=== PATIENT | male | born 1950 | race Caucasian/White ===

== ENCOUNTER → 2016-12-12 | Outpatient (CLI) | payer MEDICARE ==
[2015-09-22 23:45] VITALS: BP 112/62
[~2016-12-12] MED LIST: ASPI-482 PO; ATOR20TA PO; LISI-338 PO; OMEG100021 PO; VIT1TABL2 PO
[2016-12-12] MEDS: REGADENOSON 0.4 MG/5 ML DISP.SYRIN. IV ONE (09:00)
--- NOTE | 2016-12-12 13:21 | RAD ---
APPROVED REPORT Test Type: Pharmacological Stress Nurse/Tech: Amarilys Allred R.N. Test Indications: exertional dyspnea Cardiac History: Family history Medications: See Electronic Medical Record Medical History: See Electronic Medical Record Resting ECG: NSR Resting Heart Rate: 60 bpm Resting Blood Pressure: 132/70mmHg Pretest Chest Pain: No chest pain Nurse/Tech Notes S1S2, lungs sound clear Consent: The procedure was explained to the patient in lay terms. Informed consent was witnessed. Rafael eout was entered into [employer]. History and Stress Test performed by Amarilys Allred R.N. Pharm. Details Pharmacologic stress testing was performed using 0.4mg per 5ml of regadenoson given intravenously ove r 7-10 seconds. Stress Symptoms DyspneaNausea POST EXERCISE Reason for Termination: Infusion complete Max HR: 119 bpm Max Blood Pressure: 126/61mmHg Blood Pressure response to exercise: Normal blood pressure response during stress. Chest Pain: No. Arrhythmia: No. ST Change: No. INTERPRETATION Stress EKG Conclusion: No evidence of stress induced EKG changes. Imaging Protocol IMAGE PROTOCOL: Rest Tc-99m/stress Tc-99m 1 day Rest: Stress: Viability: Radiopharm.Tc99m [id number] Sestamibi Dose11.8mCi 33mCi Img Date 12/12/2016 12/12/2016 Inj-Img Tcqu27xkn. 45min. Rest Admin Site:IV - Right AntecubitalAdministrator:HODA Garrett Stress Admin Site: IV - Right AntecubitalAdministrator: Hermilo Arora, RT (R)(N) STRESS DATA End Diast. Vol.59.0mlAv. Heart Rate69.0bpm End Syst. Vol.9.0mlCO Index BSA0.0L/min Myocardial Vokl737.0gEject. Ehwzzosn29.0% Stress Rates Pk. Fill Rate3.59EDV/secLVtime Pk. Fill 258.76msec Pk. Empty Rate5.46ESV/secLVtime Pk. Nndik103.62msec 06/10 Pk. Fill1.06EDV/sec Stress Scores Regional WT3.00Summed WT17.00 Regional WM0.00Summed WM2.00 The rest and stress images show normal perfusion, normal contraction and thickening. LV Perf. Quant 17 Seg. SSS0.00 17 Seg. SRS1.00 17 Seg. SDS0.00 Stress Defect Extent (% LAD)0.00Rest Defect Extent (% LAD)0.00Rev. Defect Extent (% LAD)0.00 Stress Defect Extent (% LCX) 0.00Rest Defect Extent (% LCX)0.00Rev. Defect Extent (% LCX)0.00 Stress Defect Extent (% RCA)0.00Rest Defect Extent (% RCA)0.00Rev. Defect Extent (% RCA)0.00 Stress Defect Extent (% FLORENTINO)0.00Rest Defect Extent (% FLORENTINO)0.00Rev. Defect Extent (% FLORENTINO)0.00 Other Information Quality:Good Risk Assessment: Low Risk Conclusion 1. No evidence of stress induced EKG changes. 2. Normal perfusion at stress/rest. 3. Low risk study. EF > 70%
--- NOTE | 2016-12-12 18:08 | CARD ---
APPROVED REPORT EXAM: Two-dimensional and M-mode echocardiogram with Doppler and color Doppler. Other Information Quality : GoodHR: 60bpm Rhythm : NSR INDICATION Dyspnea on exertion RISK FACTORS Hypertension Obesity Hyperlipidemia 2D DIMENSIONS RVDd2.9 (2.9-3.5cm)Left Atrium(2D)3.5 (1.6-4.0cm) IVSd1.0 (0.7-1.1cm)Aortic Root(2D)3.1 (2.0-3.7cm) LVDd3.9 (3.9-5.9cm)LVOT Diameter2.4 (1.8-2.4cm) PWd1.0 (0.7-1.1cm)LVDs2.7 (2.5-4.0cm) FS (%) 29.8 %SV35.3 ml LVEF(%)57.7 (>50%) Aortic Valve AoV Peak Garcia.126.0cm/sAoV VTI25.6cm AO Peak GR.6.4mmHgLVOT Peak Garcia.122.7cm/s AO Mean GR.3mmHgAVA (VMAX)4.56cm2 Mitral Valve MV E Pvzesoky53.4cm/sMV E Peak Gr.3mmHg MV DECEL [id number] A Lfnqtveg51.4cm/s MV E Mean Gr.1mmHgE/A Ratio0.9 MV A Qdrefpsi71en Pulmonary Valve PV Peak Owmfwxzc174.9cm/s Pulmonary Vein S1 Hrzhuhhr50.3cm/sD2 Vrixkbfd86.4cm/s PVa htiqxjys51rdyz LEFT VENTRICLE The left ventricle is normal size. There is normal left ventricular wall thickness. The left ventricu lar systolic function is normal. The Ejection Fraction is 55-60%. There is normal LV segmental wall m otion. Transmitral Doppler flow pattern is Grade I-abnormal relaxation pattern. RIGHT VENTRICLE The right ventricle is normal size. There is normal right ventricular wall thickness. The right ventr icular systolic function is normal. ATRIA The left atrium size is normal. The right atrium size is normal. The interatrial septum is intact wit h no evidence for an atrial septal defect or patent foramen ovale as noted on 2-D or Doppler imaging. AORTIC VALVE The aortic valve is mildly thickened. The aortic valve is trileaflet. Doppler and Color Flow revealed no significant aortic regurgitation. There is no significant aortic valvular stenosis. MITRAL VALVE The mitral valve leaflets are thickened. There is no evidence of mitral valve prolapse. There is no m itral valve stenosis. Doppler and Color Flow revealed no mitral valve regurgitation noted. TRICUSPID VALVE Doppler and Color Flow revealed trace tricuspid valve regurgitation. PULMONIC VALVE The pulmonic valve is not well visualized but appears to open well. Doppler and Color Flow revealed t race pulmonic valvular regurgitation. There is no pulmonic valvular stenosis by spectral Doppler. GREAT VESSELS The aortic root is normal in size. The ascending aorta is normal in size. The pulmonary artery is nor mal. The IVC is normal in size and collapses >50% with inspiration. PERICARDIAL EFFUSION There is no evidence of significant pericardial effusion. Critical Notification Critical Value: No <Conclusion> The left ventricular systolic function is normal. The Ejection Fraction is 55-60%. There is normal LV segmental wall motion. Transmitral Doppler flow pattern is Grade I-abnormal relaxation pattern. Doppler and Color Flow revealed trace tricuspid valve regurgitation. There is no evidence of significant pericardial effusion.
== END | disposition home or self-care (01) ==
LOC: NM 07:47
PROVIDERS: ATTEND Internal Medicine Cardiovascular Disease
DX: I07.1 Rheumatic tricuspid insufficiency (principal)
CPT/HCPCS: 78452; 93017; 93306; 96374; 96375; 96376; A9500; J2785

== ENCOUNTER → 2017-02-27 | Outpatient (CLI) | payer MEDICARE ==
[2015-09-22 23:45] VITALS: BP 112/62
[~2017-02-27] MED LIST changes: +IOHEXOL 240 MG/ML 50ML VIAL. PO ONE
--- NOTE | 2017-02-27 12:30 | KCIC ---
Examination: CT of the abdomen pelvis with oral contrast HISTORY: History of left lower quadrant abdominal pain, bloating for one month COMPARISON: None available TECHNIQUE: Axial CT images of the abdomen pelvis were performed with oral contrast. Coronal and sagittal reformats are performed. Exposure: One or more of the following individualized dose reduction techniques were utilized for this examination: 1. Automated exposure control 2. Adjustment of the mA and/or kV according to patient size 3. Use of iterative reconstruction technique. Findings: The visualized bibasilar lungs grossly appears unremarkable. No evidence of free air identified in the abdomen. The evaluation of the solid organs is limited due to lack of IV contrast. There is diffuse decreased attenuation throughout the liver likely hepatic steatosis. The visualized spleen, adrenals grossly appears unremarkable. The gallbladder is mildly distended. The stomach is mildly distended with contrast. The small bowel is nondilated. The appendix is normal. Feces and gas noted in the colon. Urinary bladder is mildly distended. Mild prominent appearing prostate gland. There is a 4 mm calculus identified in the right kidney. No evidence of hydronephrosis. Minimal bilateral perinephric fat stranding identified. There is a exophytic 1.3 cm cystic density identified in the inferior aspect of the left kidney measuring 14 Hounsfield units could be a cyst or cystic lesion. The visualized pancreas grossly appears unremarkable. Moderate aortic atherosclerosis. Moderate degenerative changes lumbar spine. IMPRESSION: 1. 4 mm intrarenal collecting system calculus identified in the right kidney. 2. 1.3 cm cystic structure identified in the inferior pole of the left kidney could be a cyst or cystic lesion. Follow-up ultrasound is limited for further evaluation. 3. Mild nonspecific bilateral perinephric fat stranding could be chronic. Urinary tract infection is not completely excluded. Consider follow-up urinalysis. 4 . Diffuse hepatic steatosis. 5. Moderate amount of stool identified throughout the colon. Correlate for constipation. Electronically signed by: Prem Murrieta MD (02/27/2017 12:27 PM) [facility]
== END | disposition home or self-care (01) ==
LOC: KCIC CT 10:36
PROVIDERS: ATTEND Family Medicine
DX: K76.0 Fatty (change of) liver, not elsewhere classified (principal); N39.0 Urinary tract infection, site not specified; N20.0 Calculus of kidney; I70.0 Atherosclerosis of aorta; R14.0 Abdominal distension (gaseous)
CPT/HCPCS: 74176; Q9966

== ENCOUNTER → 2017-04-24 | Outpatient (CLI) | payer MEDICARE ==
[2015-09-22 23:45] VITALS: BP 112/62
[~2017-04-24] MED LIST changes: -IOHEXOL 240 MG/ML 50ML VIAL. PO ONE
--- NOTE | 2017-04-24 11:43 | RAD ---
Renal ultrasound 04/24/2017 Indication: Chronic renal disease Comparison study: CT of the abdomen and pelvis without contrast February 27, 2017. Discussion: Ultrasound evaluation of the kidneys was performed. Static images were submitted to PACS. Right kidney is somewhat poorly visualized likely secondary to body habitus. Right kidney measures approximately 10.6 cm in length. No overt hydronephrosis or evidence of nephrolithiasis is identified. The bladder is partially decompressed but otherwise grossly unremarkable. Left kidney is also somewhat poorly visualized measuring approximately 10.3 cm in length. No hydronephrosis or nephrolithiasis is seen on the left. Impression: Somewhat limited study without sonographic evidence of renal abnormality.
== END | disposition home or self-care (01) ==
LOC: US 08:13
PROVIDERS: ATTEND Internal Medicine Nephrology
DX: I12.9 Hypertensive chronic kidney disease with stage 1 through stage 4 chronic kidney disease, or unspecified chronic kidney disease (principal); N18.3 Chronic kidney disease, stage 3 (moderate); N28.1 Cyst of kidney, acquired
CPT/HCPCS: 76770

== ENCOUNTER → 2018-07-26 | Outpatient (CLI) | payer BC, MEDICARE ==
[2015-09-22 23:45] VITALS: BP 112/62
[~2018-07-26] MED LIST changes: +CONTRAST GIVEN. MC PRN; +IOHEXOL 300 MG/ML 100ML VIAL. IV ONE
--- NOTE | 2018-07-26 13:06 | RAD ---
CT of the abdomen with and without IV contrast compared to CT of the abdomen and pelvis dated February 27, 2017 for abnormal LFTs. TECHNIQUE: Contiguous helical 3 mm axial images are obtained from the apex of diaphragm to the iliac crests both before and after administration of IV contrast. Sagittal and coronal reformations are evaluated. FINDINGS: Calcified granulomata in the right hilum are noted. Lung bases are clear. There is also small calcified granuloma in the left lobe of the liver with several more than the spleen. These are of doubtful clinical consequence. Gallbladder is partially fluid distended and grossly unremarkable. Splenomegaly is redemonstrated. Pancreas and bilateral adrenal glands are grossly unremarkable. There are several descending esophageal and gastric varices which are markedly more prominent than on the prior study. Pulmonary venous.. Splenic vein is patent. Right kidney is notable for a nonobstructing upper pole calyceal calculus which is stable and unchanged. There are 2 right renal arteries. Left kidney is notable for a 1.8 x 1.7 cm circumscribed abnormality arising from the inferior medial pole, with Hounsfield units of 50 on early postcontrast images, which fall to 40 on late postcontrast images. Unfortunately this region was not included on the precontrast images, but was noted to have Hounsfield units of only 12 on the prior study. Consequently, enhancing enlarging malignancy is suspected. This finding could be further validated with renal ultrasound or MRI of the abdomen. Incidentally noted in the left lower quadrant of the abdomen on CT series #7 axial image #86 is a 1.3 cm aneurysm which is enlarged from prior measurement of 0.8 mm. It is difficult to tell whether this constitutes an isolated arterial aneurysm, or an aneurysmal segment of a high flow arteriovenous fistula or perhaps an enlarging nidus of vascular malformation. If there is a venous fistulous component, this could contribute to increased portal pressures and the aforementioned a sending an esophageal and gastric varices. This finding could be better defined and perhaps treated with with direct angiography. No significant osteoblastic or osteolytic bone lesions are seen. No gross abnormalities of the visualized enteric structures. IMPRESSION: 1. Worsening ascending with preserved portal vein and splenic vein patency. 2. Persistent splenomegaly. 3. 1.8 cm left lower pole exophytic high density renal lesion suspicious for enlarging renal cell carcinoma. This lesion could be further characterized with renal ultrasound and/or MRI, and is amenable to percutaneous biopsy and cryoablation if the patient is not deemed to be a suitable candidate for partial nephrectomy. 4. 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 Direct mesenteric angiography is recommended for better diagnostic assessment and treatment planning. Findings were discussed with Dr. Luther immediately upon interpretation of the examination. Electronically signed by: Hi Miranda MD (07/26/2018 1:03 PM) [facility]
== END | disposition home or self-care (01) ==
LOC: CT 15:43
PROVIDERS: ATTEND Family Medicine
DX: R16.1 Splenomegaly, not elsewhere classified (principal); K82.8 Other specified diseases of gallbladder; I86.4 Gastric varices; N20.0 Calculus of kidney; I71.4 Abdominal aortic aneurysm, without rupture
CPT/HCPCS: 74170; Q9967

== ENCOUNTER → 2018-08-18 | Outpatient (CLI) | payer BC ==
[2015-09-22 23:45] VITALS: BP 112/62
[~2018-08-18] MED LIST changes: -CONTRAST GIVEN. MC PRN; -IOHEXOL 300 MG/ML 100ML VIAL. IV ONE
--- NOTE | 2018-08-18 15:23 | RAD ---
Renal ultrasound compared to similar study dated April 24, [address] scan. Technique an findings: Real-time grayscale and color and spectral Doppler evaluation of the kidneys is performed. The right kidney measures 11.6 x 5.5 x 5.9 cm and the left measures 12.6 x 5.0 x 5.6 cm. There is no hydronephrosis or perinephric fluid around either kidney. At the inferior pole the left kidney, there is a circumscribed hypoechoic exophytic lesion measuring 2.1 x 1.9 x 1.8 cm, corresponding to the abnormality seen on the prior CT scan. No demonstrable internal vascularity is evident, and this lesion does appear to exhibit increased through transmission suggesting a cystic nature. This is most consistent with a Bosniak type IIF lesion, for which follow-up evaluation in 6 months with three-phase CT scan or MRI with gadolinium is recommended. Ultrasound for follow-up is not likely to yield sufficient clarity. The urinary bladder is partially fluid distended and grossly unremarkable. Ureteral jets are not observed. IMPRESSION: 1. 2.1 cm complex hypoechoic exophytic lesion at the inferior pole of the left kidney corresponding to the abdomen malady seen on CT scan. This most likely represents a complex renal cyst, and is most consistent with a Bosniak type II F lesion. Follow-up evaluation in 6 months with three-phase CT scan or gadolinium enhanced MRI is recommended. Follow-up with ultrasound is not likely to add sufficient clarity. Electronically signed by: Hi Miranda MD (08/18/2018 3:20 PM) [facility]
== END | disposition home or self-care (01) ==
LOC: US 12:52
PROVIDERS: ATTEND Urology
DX: N28.89 Other specified disorders of kidney and ureter (principal)
CPT/HCPCS: 76770

== ENCOUNTER → 2019-02-23 | Outpatient (CLI) | payer BC ==
[2015-09-22 23:45] VITALS: BP 112/62
--- NOTE | 2019-02-24 16:42 | RAD ---
RENAL COMPLETE BILATERAL History: Follow-up renal lesion. Comparison: August 18, 2018. Procedure: Transabdominal ultrasound images are obtained of the kidneys and bladder. Findings: Right kidney: measures 12.1 x 4.0 x 6.5 cm. Normal cortical echotexture. Corticomedullary differentiation is preserved. No hydronephrosis. No renal cyst right superior renal nonobstructing calculus. Left kidney: measures 11.4 x 5.8 x 5.8 cm. Normal cortical echotexture. Corticomedullary differentiation is preserved. No hydronephrosis. Left inferior exophytic renal complex cystic lesion measures 2.0 x 1.9 x 1.6 cm, similar compared to prior. Urinary bladder: Decompressed urinary bladder. Enlarged prostate measures 4.0 x 4.8 x 4.2 cm. IMPRESSION: 1. Complicated left renal cyst, unchanged compared to prior ultrasound. Recommend continued follow-up. 2. Nonobstructing right superior renal calculus.. Electronically signed by: Marques Bhatt DO (02/24/2019 4:39 PM) [facility]
== END | disposition home or self-care (01) ==
LOC: US 15:22
PROVIDERS: ATTEND Urology
DX: N28.1 Cyst of kidney, acquired (principal); N20.0 Calculus of kidney; N40.0 Benign prostatic hyperplasia without lower urinary tract symptoms
CPT/HCPCS: 76770

== ENCOUNTER → 2019-05-16 | Outpatient (CLI) | payer BC ==
[2015-09-22 23:45] VITALS: BP 112/62
--- NOTE | 2019-05-16 14:57 | KCIC ---
3 views of right shoulder without comparison for right shoulder pain when reaching above the head, prior rotator cuff repair. FINDINGS: There is no fracture, dislocation, or acute osseous abnormality. There may be some narrowing of the glenohumeral joint. No calcifications are seen. IMPRESSION: 1. No acute osseous abnormality. There may be mild glenohumeral osteoarthritis. Electronically signed by: Hi Miranda MD (05/16/2019 2:54 PM) [facility]
== END | disposition home or self-care (01) ==
LOC: KCIC 08:12
PROVIDERS: ATTEND Family Medicine
DX: M25.511 Pain in right shoulder (principal)
CPT/HCPCS: 73030

== ENCOUNTER 2019-07-03 14:10 | Emergency (ER) | payer BC ==
[~2019-07-03] VITALS: Ht 180.3 cm; Wt 121.0 kg
[2019-07-03] MEDS ORDERED: HYDROcodone/APAP 5/325MG 1 TAB TABLET PO ONE (15:15)
--- NOTE | 2019-07-03 15:18 | PHYS DOC ---
Past Medical History Past Medical History: High Cholesterol, Hypertension Additional Past Medical Histor: CHRONIC BACK PAIN Past Surgical History: Tonsillectomy, Other Additional Past Surgical Histo: back, shoulder, finger , hernia Alcohol Use: None Drug Use: None Adult General Chief Complaint Chief Complaint: BACK PAIN OR INJURY HPI HPI Patient is a 69 year old male who presents with states 2 days ago he was wa lking when he heard a pop in his right low back and right hip. States is sharp and shooting goes from his right lower back down into the right hip and down the back of the right leg. States he's been using a heating pad and cold pack with no relief. He rates his pain a 9 out of 10. States he is allergic to codeine but he is able to take hydrocodone. Has history of bone spurs in his back and back surgery in 2005. Review of Systems Review of Systems Musculoskeletal: rigth low back paininto right hip and down back of leg joint pain [] All other systems were reviewed and found to be within normal limits, except as documented in this note. Current Medications Current Medications Current Medications Medications (Trade) Dose Ordered Sig/Guera Start Time Stop Time Status Last Admin Dose Admin Acetaminophen/ Hydrocodone Bitart (Lortab 5/325) 1 tab 1X ONCE 07/03/19 15:15 07/03/19 15:16 DC 07/03/19 15:22 1 TAB Orphenadrine Citrate (Norflex) 60 mg STK-MED ONCE 07/03/19 15:57 07/03/19 15:57 DC Allergies Allergies Allergies Coded Allergies Type Severity Reaction Last Updated Verified codeine Allergy Severe HIVES, MAKES ME AGGRESSIVE 07/03/19 Yes Physical Exam Physical Exam Constitutional: Well developed, well nourished, no acute distress, non-toxic appearance. [] HENT: Normocephalic, atraumatic, bilateral external ears normal, oropharynx neelima st, no oral exudates, nose normal. [] Eyes: PERRLA, EOMI, conjunctiva normal, no discharge. [] Neck: Normal range of motion, no tenderness, supple, no stridor. [] Cardiovascular:Heart rate regular rhythm, no murmur [] Lungs & Thorax: Bilateral breath sounds clear to auscultation [] Abdomen: Bowel sounds normal, soft, no tenderness, no masses, no pulsatile masses. [] Skin: Warm, dry, no erythema, no rash. [] Back: Right low back tenderness, no CVA tenderness. [] Extremities: No tenderness, no cyanosis, no clubbing, ROM intact, no edema. [] Neurologic: Alert and oriented X 3, normal motor function, normal sensory function, no focal deficits noted. [] Psychologic: Affect normal, judgement normal, mood normal. [] Current Patient Data Vital Signs Vital Signs Date Time Temp Pulse Resp B/P (MAP) Pulse Ox O2 Delivery O2 Flow Rate FiO2 07/03/19 15:22 16 07/03/19 14:40 98.0 68 165/77 (106) 97 98.0 EKG EKG [] Radiology/Procedures Radiology/Procedures [] Impressions: [place] [address] IMAGING REPORT Signed PATIENT: BARBARA BLANK ACCOUNT: [id number] : 1950 LOCATION: ER AGE: 69 SEX: M EXAM STATUS: REG ER ORD. PHYSICIAN: LEDA MOSER APRN REASON: pain. [place] a pop PROCEDURE: LUMBAR SPINE MIN 4V LUMBAR SPINE MIN 4V History: Pain, heard a pop Comparison: January 02, 2016 Findings: 5 views of the lumbar spine are submitted. Lumbar vertebral body stature and AP alignment are unchanged, considered within normal limits. There is again advanced L5-S1 degenerative disc disease. There is facet degenerative change greater inferiorly of the lumbar spine. There is atherosclerotic calcification of the abdominal aorta. There are likely phleboliths in the pelvis bilaterally. Impression: 1. There is again advanced L5-S1 degenerative disc disease and facet degenerative change greater inferiorly of the lumbar spine. Electronically signed by: Bud Obrien MD (07/03/2019 3:43 PM) [facility] DICTATED and SIGNED BY: BUD OBRIEN MD DATE: 07/03/[address] [id number] IMAGING REPORT Signed PATIENT: BARBARA BLANK ACCOUNT: [id number] : 1950 LOCATION: ER AGE: 69 SEX: M EXAM STATUS: REG ER ORD. PHYSICIAN: LEDA MOSER APRN REASON: pain PROCEDURE: HIP RIGHT 2V WITH PELVIS HIP RIGHT 2V WITH PELVIS History: Pain Comparison: None. Findings: AP view of the pelvis and 2 additional views of the right hip are submitted. Hip joint spaces are relatively preserved. No acute fracture or dislocation is identified by radiographs. There are likely phleboliths in the bilateral pelvis. There is degenerative disc disease and spondylosis at the L5-S1 level. There is greater quantity of retained stool in the region of the visualized cecum. Impression: 1. No acute osseous abnormality is identified by radiographs. 2. There is degenerative disc disease and spondylosis at the visualized L5-S1 level. Electronically signed by: Bud Obrien MD (07/03/2019 4:37 PM) [facility] DICTATED and SIGNED BY: BUD OBRIEN MD DATE: 07/03/191636 Course & Med Decision Making Course & Med Decision Making Alert and oriented. No saddle paresthesia. Patient denies any numbness or tingling or loss of bowel or bladder. Patient can move all extremities within normal limits. Movement is very painful for the patient. Patient does have right lower back tenderness with palpation but no deformities are felt or seen. There is no bruising. Patient has range of motion of his right hip. Patient did walk back to the room but was and over and had a shuffling slow gait due to pain. Has full strength is all extremities. Patient denies shortness of breath, chest pain, fever, dysuria, numbness or tingling, skin color or temperature change. Skin pink warm and dry. No extremity swelling. Patient states that he is feeling much better after the pain medicine and the muscle relaxer. Patient is able to get up out of the bed on his own and although he is still slightly hunched over he is walking with a steady gait. Patient to follow-up with his primary care provider tomorrow. Dragon Disclaimer Dragon Disclaimer This electronic medical record was generated, in whole or in part, using a voice recognition dictation system. Departure Departure Impression: Primary Impression: Low back pain Additional Impression: Muscle strain Disposition: HOME, SELF-CARE Condition: STABLE Referrals: Charley JENNINGS MD (PCP) Patient Instructions: Low Back Strain with [facility], Muscle Strain, Sciatica with [facility] Additional Instructions: Call your doctor tomorrow. Take medications as prescribed. Use a heating pad. Scripts Methylprednisolone (MEDROL) 4 Mg Tab.ds.pk 1 PKG PO UD, #1 PKG Prov: LEDA MOSER [employer]IMAL DAMAGE [employer]OL AGENT 07/03/19 Hydrocodone Bit/Acetaminophen (HYDROCODONE-APAP 5-325 ) 1 Tab Tablet 1 TAB PO PRN Q8HRS PRN for PAIN, #10 TAB 0 Refills Prov: LEDA MOSER [employer]IMAL DAMAGE [employer] AGENT 07/03/19 Orphenadrine Citrate (ORPHENADRINE CITRATE) 100 Mg Tablet.er 1 TAB PO BID, #20 TAB 1 Refill Prov: LEDA MOSER [employer]IM[employer] DAMAGE CONTROL AGENT 07/03/19 Problem Qualifiers Primary Impression: Low back pain Chronicity: acute Back pain laterality: right Sciatica presence: with sciatica Sciatica laterality: sciatica of right side Qualified Codes: M54.41 - Lumbago with sciatica, right side LEDA MOSER [employer]IM[employer] DAMAGE [employer] AGENT Jul 03, 2019 15:18
--- NOTE | 2019-07-03 15:46 | RAD ---
LUMBAR SPINE MIN 4V History: Pain, heard a pop Comparison: January 02, 2016 Findings: 5 views of the lumbar spine are submitted. Lumbar vertebral body stature and AP alignment are unchanged, considered within normal limits. There is again advanced L5-S1 degenerative disc disease. There is facet degenerative change greater inferiorly of the lumbar spine. There is atherosclerotic calcification of the abdominal aorta. There are likely phleboliths in the pelvis bilaterally. Impression: 1. There is again advanced L5-S1 degenerative disc disease and facet degenerative change greater inferiorly of the lumbar spine. Electronically signed by: Chau Reed MD (07/03/2019 3:43 PM) [facility]
[2019-07-03] MEDS ORDERED: ORPHENADRINE CITRATE 60 MG/2 ML VIAL. ONE (15:57)
[2019-07-03] MEDS ORDERED: ORPHENADRINE CITRATE 60 MG/2 ML VIAL. IM ONE (16:00)
[2019-07-03] MEDS ORDERED: METH4TAB2 PO (16:29)
[2019-07-03] MEDS ORDERED: ORPH100T PO (16:29)
[2019-07-03] MEDS ORDERED: HYDR-2761 PO (16:29)
--- NOTE | 2019-07-03 16:40 | RAD ---
HIP RIGHT 2V WITH PELVIS History: Pain Comparison: None. Findings: AP view of the pelvis and 2 additional views of the right hip are submitted. Hip joint spaces are relatively preserved. No acute fracture or dislocation is identified by radiographs. There are likely phleboliths in the bilateral pelvis. There is degenerative disc disease and spondylosis at the L5-S1 level. There is greater quantity of retained stool in the region of the visualized cecum. Impression: 1. No acute osseous abnormality is identified by radiographs. 2. There is degenerative disc disease and spondylosis at the visualized L5-S1 level. Electronically signed by: Chau Reed MD (07/03/2019 4:37 PM) [facility]
[2019-07-03 16:50] VITALS: BP 135/75
== END 2019-07-03 16:55 | disposition home or self-care (01) ==
LOC: ER 14:10
DX: S39.012A Strain of muscle, fascia and tendon of lower back, initial encounter (principal); M47.817 Spondylosis without myelopathy or radiculopathy, lumbosacral region; M25.551 Pain in right hip; M79.604 Pain in right leg; I10 Essential (primary) hypertension; E78.00 Pure hypercholesterolemia, unspecified; G89.29 Other chronic pain; Z98.890 Other specified postprocedural states; Z88.5 Allergy status to narcotic agent; X50.9XXA Other and unspecified overexertion or strenuous movements or postures, initial encounter; Y93.01 Activity, walking, marching and hiking; Y92.89 Other specified places as the place of occurrence of the external cause; Y99.8 Other external cause status
CPT/HCPCS: 72110; 73502; 96372; 99284; J2360